=== PATIENT | female | born 1940 | race African-American/Black ===

== ENCOUNTER 2017-05-23 15:50 | Emergency (ER) | payer OTHER, MEDICARE ==
[2017-05-23 16:02] VITALS: BP 163/89; PULSE 72; TEMP 98.1; BMI 28.3
[2017-05-23] MEDS ORDERED: ACETAMINOPHEN 325 MG TABLET (FP) PO ONE (16:48)
[2017-05-23] MEDS ORDERED: ACETAMINOPHEN 325 MG TABLET (FP) ONE (16:52)
--- NOTE | 2017-05-23 16:57 | PDOC ---
History of Present Illness <Mylene Braun - Last Filed: 05/23/17 18:03> - History of Present Illness Initial Comments: 05/23/17 16:41 Patient is a 77 year old female who presents with left-sided back pain. The patient reports onset of left-sided back pain beginning yesterday evening that she describes as sharp with some radiation into her left flank. She states that she had a recent CT scan that showed "something with the gallbladder" and wonders if that could have something to do with her back pain. She was recently seen by her PCP Dr. Ievy who did lab work yesterday before the onset of her pain. She endorses some mild cough, but denies any fevers, chills , SOB, chest pain, abdominal pain, or changes with urination or bowel movements. She denies any pain on urination or blood in her urine as well. <Tha Satnos - Last Filed: 05/23/17 18:07> - General Chief Complaint: Pain, Acute Stated Complaint: LEFT UPPER BACK PAIN Time Seen by Provider: 05/23/17 15:55 Past History <Mylene Braun - Last Filed: 05/23/17 18:03> - Past Medical History Anemia: No Asthma: No Cancer: No Cardiac Disorders: No CVA: No COPD: No CHF: No Dementia: No Diabetes: No GI Disorders: No (gastritis) Disorders: No HTN: Yes Hypercholesterolemia: No Liver Disease: No Seizures: No Thyroid Disease: Yes (HASHIMOTOS THYROIDITIS) - Surgical History Abdominal Surgery: No Appendectomy: No Cardiac Surgery: No Cholecystectomy: No Lung Surgery: No Neurologic Surgery: No Orthopedic Surgery: No - Psycho/Social/Smoking Cessation Hx Anxiety: No Suicidal Ideation: No Smoking History: Never smoked Have you smoked in the past 12 months: No Hx Alcohol Use: No Drug/Substance Use Hx: No Substance Use Type: Alcohol Hx Substance Use Treatment: No <Tha Santos - Last Filed: 05/23/17 18:07> - Past Medical History Allergies/Adverse Reactions: Allergies Allergy/AdvReac Type Severity Reaction Status Date / Time codeine [Codeine] Allergy Nausea Verified 05/23/17 15:51 Opioids - Morphine Analogues Allergy Verified 05/23/17 15:52 Penicillins Allergy Swelling Verified 05/23/17 15:51 promethazine HCl Allergy Verified 05/23/17 15:52 [From Phenergan] latex Allergy Rash Uncoded 05/23/17 15:51 Home Medications: Ambulatory Orders Aspirin [ASA -] 81 mg PO DAILY 12/01/13 Guanfacine HCl [Tenex] 0.5 mg PO HS 12/01/13 Levothyroxine [Synthroid -] 25 mcg PO DAILY 12/01/13 Omeprazole 40 mg PO BID capsule 12/16/14 Biotin 1 mg PO DAILY 03/11/16 Atenolol [Tenormin -] 0 mg PO DAILY 05/23/17 Pravastatin Sodium [Pravachol] 40 mg PO DAILY 05/23/17 Telmisartan [Micardis] 80 mg PO DAILY 05/23/17 Review of Systems - Review of Systems Constitutional: No: Chills, Fever HEENTM: No: Recent change in vision Respiratory: Yes: Cough. No: Shortness of Breath, Productive cough, Hemoptysis Cardiac (ROS): No: Chest Pain, Palpitations, Chest Tightness ABD/GI: No: Constipated, Diarrhea, Nausea, Vomiting : No: Burning, Dysuria, Hematuria, Pain Musculoskeletal: Yes: Back Pain Integumentary: No: Rash Neurological: No: Headache, Numbness, Tingling, Weakness <Tha Santos - Last Filed: 05/23/17 18:07> *Physical Exam - Vital Signs Last Vital Signs Temp Pulse Resp BP Pulse Ox 98.1 F 72 18 163/89 98 05/23/17 15:51 05/23/17 15:51 05/23/17 15:51 05/23/17 15:51 05/23/17 15:51 <Mylene Braun - Last Filed: 05/23/17 18:03> - Vital Signs Last Vital Signs Temp Pulse Resp BP Pulse Ox 98.1 F 72 18 163/89 98 05/23/17 15:51 05/23/17 15:51 05/23/17 15:51 05/23/17 15:51 05/23/17 15:51 - Physical Exam Comments: 05/23/17 17:00 General Appearance: Nourished. No Apparent Distress HEENT: No Pharyngeal Erythema, Tonsillar Exudate, Tonsillar Erythema Respiratory/Chest: Lungs Clear, Normal Breath Sounds. No Crackles, Rales, Rhonchi, Wheezing Cardiovascular: Regular Rhythm, Regular Rate. No Murmur, Gallop/S3, Gallop/S4 Gastrointestinal/Abdominal: Normal Bowel Sounds, Soft. No Guarding, Rebound, Tenderness Musculoskeletal: No CVA Tenderness Extremity: Normal Capillary Refill, Some reproducible left-sided back pain with ranging of the left shoulder. Integumentary: Normal Color, Dry, Warm Neurologic: Fully Oriented, Alert, Normal Mood/Affect, Normal Response <Tha Santos - Last Filed: 05/23/17 18:07> Heart Score/ECG Review #1 General ECG Interpretation: Sinus Rhythm, Normal Rate (63), Normal Intervals, No acute ischemic changes Compared to previous ECG there are: No significant change <Tha Santos - Last Filed: 05/23/17 18:07> ED Treatment Course - ADDITIONAL ORDERS Additional order review: Laboratory Results 05/23/17 16:53 Urine Color Yellow Urine Appearance Clear Urine pH 8.5 H Ur Specific [place] 1.015 Urine Protein Negative Urine Glucose (UA) Negative Urine Ketones Negative Urine Blood Trace-intact H Urine Nitrite Negative Urine Bilirubin Negative Urine Urobilinogen 0.2 Ur Leukocyte Esterase Negative Urine RBC 2-5 Urine WBC 1-2 Ur Epithelial Cells Few Urine Bacteria Few - RADIOLOGY Radiology Studies Ordered: Category Date Time Status CHEST PA & LAT [RAD] Stat Radiology 05/23/17 16:48 Taken GALLBLADDER US [US] Stat Ultrasound 05/23/17 16:47 Taken - Medications Given in the ED: ED Medications Discontinued Medications Generic Name Dose Route Start Last Admin Trade Name Freq PRN Reason Stop Dose Admin Acetaminophen 650 mg 05/23/17 16:48 05/23/17 16:59 Tylenol - PO 05/23/17 16:49 650 mg ONCE ONE Administration <Mylene Braun - Last Filed: 05/23/17 18:03> Medical Decision Making - Medical Decision Making 05/23/17 17:01 Patient is a 77 year old female who presents with left-sided back pain. Differential includes but is not limited to: Musculoskeletal strain, pylonephritis, nephrolethiasis, pneumonia, or referred pain from gallbladder disease. Given her history we will obtain a chest radiograph to evaluate for pneumonia. We will also obtain an gallbladder US to evaluate for gallstones. We will obtain a UA as well to evaluate for UTI, pylonephritis, or nephrolethiasis. Given her physical exam and history, it is likely her pain is due to a musculoskeletal strain. 05/23/17 17:59 Patient's work up has been negative thus far. UA is unremarkable. Chest radiograph is preliminarily read has unremarkable pending official radiologist read. US does not demonstrate any gallstones or gallbladder pathology. We discussed the results with the patient and we believe that her symptoms are most likely due to musculoskeletal strain. We feel comfortable discharging the patient home and the patient is agreeable with the plan. <Tha Santos - Last Filed: 05/23/17 18:07> *DC/Admit/Observation/Transfer - Discharge Dispostion Admit: No <Mylene Braun - Last Filed: 05/23/17 18:03> - Attestations Physician Attestion: 05/23/17 17:58 I, Dr. Tha Santos, attest that this document has been prepared under my direction and personally reviewed by me in its entirety. I further attest, that it accurately reflects all work, treatment, procedures and medical decision -making performed by me. <Tha Santos - Last Filed: 05/23/17 18:07> Diagnosis at time of Disposition: Thoracic back sprain Qualifiers: Encounter type: initial encounter Qualified Code(s): S23.9XXA - Sprain of unspecified parts of thorax, initial encounter - Discharge Dispostion Disposition: HOME Condition at time of disposition: Improved - Patient Instructions Printed Discharge Instructions: Back Pain (Alternative Therapy), DI for Back Strain or Sprain Additional Instructions: you can take ibuprofen 400 mg every 8 hours as needed for pain. take with food. you can also take tylenol 500 mg every 6 hours as needed for pain. return for shortness of breath, fever, cough or any concerns. your urine was negative for infection. your gallbladder ultrasound was negative for gallstones. you should followup as needed for HIDA scan. return for any problems or concerns. call to schedule with your regular doctor.
[2017-05-23 17:01] LABS: PH,URINE 8.5 (4.5-8); URINE APPEARANCE Clear; URINE BILIRUBIN Negative (NEGATIVE); URINE GLUCOSE (UA) Negative (NEGATIVE); URINE KETONE Negative (NEGATIVE); URINE LEUK ESTERASE Negative (NEGATIVE); URINE NITRITE Negative (NEGATIVE); URINE PROTEIN Negative (NEGATIVE); URINE UROBILINOGEN 0.2 (0.2-1.0)
[2017-05-23 17:02] LABS: URINE BLOOD Trace-intact (NEGATIVE); URINE COLOR YELLOW
[2017-05-23 17:18] LABS: URINE BACTERIA FEW /hpf (NEGATIVE)
--- NOTE | 2017-05-23 17:56 | PDOC ---
Attending Attestation - Resident Resident Name: Tha Santos - ED Attending Attestation I have performed the following: I have examined & evaluated the patient, The case was reviewed & discussed with the resident, I agree w/resident's findings & plan, Exceptions are as noted - HPI HPI: 05/23/17 17:52 77 yo F her wtih c/o left upper flank/ back pain. statees started yesterday evening. constant. worse with certain movements. no cough no f/c no n/v no association wtih food. had outpt CT which had questionable gallstones. no f/c no n/v no change to stool. no urinary sxs. no cough. was in hospital trying to get outpt us as recommended for possible gallstones on ct, and couldn't so came to ed. pain constant. - Physicial Exam PE: 05/23/17 17:54 awake alert lungs clear bilaterally. heart RRR no mr/g. abd soft nt nd. LEFT POSTERIOR RIB TTP. NO MIDLINE SPINAL TENDERNSS. EXT WWP NO EDEMA. NO CALF TENDERNSS. - Medical Decision Making 05/23/17 17:55 77 YO f here wtih left flank posterior rib/ scapular pain. likley muskuloskeletal. differential uti pyelo, pna, referred pain from GB. plan us gb , cxr ua. pain control. reassessl. likely outpt followup.
--- NOTE | 2017-05-24 13:12 | EKG ---
Test Reason : Blood Pressure : / mmHG Vent. Rate : 063 BPM Atrial Rate : 063 BPM P-R Int : 180 ms QRS Dur : 080 ms QT Int : 426 ms P-R-T Axes : 045 -38 009 degrees QTc Int : 435 ms SINUS RHYTHM LEFT AXIS DEVIATION NONSPECIFIC T WAVE ABNORMALITY NO PREVIOUS ECGS AVAILABLE Confirmed by JARETH QUIÑONES MD ([id number]) on 05/24/2017 1:12:09 PM Referred By: DR BEY Confirmed By:JARETH QUIÑONES MD
== END 2017-05-23 18:13 | disposition home or self-care (01) ==
LOC: FER 15:50
DX: S23.9XXA Sprain of unspecified parts of thorax, initial encounter (principal); X58.XXXA Exposure to other specified factors, initial encounter; Y93.89 Activity, other specified; Y92.9 Unspecified place or not applicable; I10 Essential (primary) hypertension
CPT/HCPCS: 71020-TC; 76705-TC; 81003; 81015; 93005; 93010; 99282-25

== ENCOUNTER 2018-05-25 21:57 | Emergency (ER) | payer OTHER, MEDICARE ==
[2018-05-25 22:13] VITALS: BP 155/89; PULSE 84; TEMP 98.9; BMI 28.0
--- NOTE | 2018-05-25 22:25 | PDOC ---
History of Present Illness - General Chief Complaint: Pain Stated Complaint: RIGHT THIGH PAIN Time Seen by Provider: 05/25/18 22:24 Past History - Past Medical History Allergies/Adverse Reactions: Allergies Allergy/AdvReac Type Severity Reaction Status Date / Time codeine [Codeine] Allergy Nausea Verified 05/23/17 15:51 Opioids - Morphine Analogues Allergy Verified 05/23/17 15:52 Penicillins Allergy Swelling Verified 05/23/17 15:51 promethazine HCl Allergy Verified 05/23/17 15:52 [From Phenergan] latex Allergy Rash Uncoded 05/23/17 15:51 Home Medications: Ambulatory Orders Aspirin [ASA -] 81 mg PO DAILY 12/01/13 Guanfacine HCl [Tenex] 1 mg PO HS 12/01/13 Levothyroxine [Synthroid -] 25 mcg PO DAILY 12/01/13 Omeprazole 40 mg PO BID capsule 12/16/14 Biotin 1 mg PO DAILY 03/11/16 Atenolol [Tenormin -] 25 mg PO DAILY 05/23/17 Pravastatin Sodium [Pravachol] 40 mg PO DAILY 05/23/17 Amlodipine Besylate [Norvasc -] 2.5 mg PO DAILY 05/25/18 Furosemide [Lasix] 20 mg PO DAILY 05/25/18 Telmisartan [Micardis] 40 mg PO DAILY 05/25/18 Anemia: No Asthma: No Cancer: No Cardiac Disorders: No CVA: No COPD: No CHF: No Dementia: No Diabetes: No GI Disorders: No (gastritis) Disorders: No HTN: Yes Hypercholesterolemia: No Liver Disease: No Seizures: No Thyroid Disease: Yes (HASHIMOTOS THYROIDITIS) - Surgical History Abdominal Surgery: No Appendectomy: No Cardiac Surgery: No Cholecystectomy: No Lung Surgery: No Neurologic Surgery: No Orthopedic Surgery: No - Suicide/Smoking/Psychosocial Hx Smoking History: Never smoked Have you smoked in the past 12 months: No Hx Alcohol Use: Yes Drug/Substance Use Hx: No Substance Use Type: Alcohol Hx Substance Use Treatment: No Review of Systems - Review of Systems Constitutional: No: Symptoms Reported, See HPI, Chills, Diaphoresis, Fever, Loss of Appetite, Malaise, Night Sweats, Weakness, Weight Stable, Unintentional Wgt. Loss, Unexplained wgt Loss, Other HEENTM: No: Symptoms Reported, See HPI, Eye Pain, Blurred Vision, Tearing, Recent change in vision, Double Vision, Cataracts, Ear Pain, Ocular Prothesis, Ear Discharge, Nose Pain, Nose Congestion, Tinnitus, Nose Bleeding, Hearing Loss , Throat Pain, Throat Swelling, Mouth Pain, Dental Problems, Difficulty Swallowing, Mouth Swelling, Other Respiratory: No: Symptoms reported, See HPI, Cough, Orthopnea, Shortness of Breath, SOB with Exertion, SOB at Rest, Stridor, Wheezing, Productive cough, Hemoptysis, Other ABD/GI: No: Symptoms Reported, See HPI, Abdominal Distended, Abd. Pain w/ defecation, Blood Streaked Bowels, Constipated, Diarrhea, Difficulty Swallowing , Nausea, Poor Appetite, Poor Fluid Intake, Rectal Bleeding, Vomiting, Indigestion, Abdominal cramping, Tarry Stools, Other : No: Symptoms Reported, See HPI, Burning, Dysuria, Discharge, Frequency, Flank Pain, Hematuria, Incontinence, Pain, Urgency, Testicular Mass, Testicular Swelling, Lesions, Testicular Pain, Other Musculoskeletal: No: Symptoms Reported, See HPI, Back Pain, Gout, Joint Pain, Joint Swelling, Muscle Pain, Muscle Weakness, Neck Pain, Joint Stiffness, Other Integumentary: No: Symptoms Reported, See HPI, Bruising, Change in Color, Change in Hair/Nails, Dryness, Erythema, Flushing, Lesions, Lumps, Pallor, Pruritus, Rash, Sweating, Other Neurological: Yes: Paresthesia. No: Symptoms reported, See HPI, Headache, Numbness, Pre-Existing Deficit, Seizure, Tingling, Tremors, Weakness, Unsteady Gait, Ataxia, Dizziness, Other *Physical Exam - Vital Signs Last Vital Signs Temp Pulse Resp BP Pulse Ox 98.9 F 84 16 155/89 97 05/25/18 21:58 05/25/18 21:58 05/25/18 21:58 05/25/18 21:58 05/25/18 21:58 - Physical Exam General Appearance: Yes: Nourished, Appropriately Dressed. No: Apparent Distress HEENT: positive: EOMI, LARRY, Normal ENT Inspection, Normal Voice Neck: positive: Normal Thyroid Respiratory/Chest: positive: Lungs Clear, Normal Breath Sounds Cardiovascular: positive: Regular Rhythm, Regular Rate, S1, S2 Gastrointestinal/Abdominal: positive: Normal Bowel Sounds, Soft Musculoskeletal: positive: Normal Inspection Extremity: positive: Normal Capillary Refill, Normal Inspection, Normal Range of Motion Medical Decision Making - Medical Decision Making 05/27/18 06:27 Pt comes with right anterior thigh pain. She states that the area feels like it is burning. Pain is worse when she everts her leg; better when she inverts the leg. NSAIDS alone not helping the pain. 05/27/18 06:29 I injected the femoral nerve with 1% lidocaine and pt felt partial relief. Pt likely has meralgia paresthetica *DC/Admit/Observation/Transfer Diagnosis at time of Disposition: Meralgia paresthetica of right side - Discharge Dispostion Disposition: HOME Condition at time of disposition: Stable - Referrals Referrals: Amaury Ivey [Primary Care Provider] - Nixon Davis DO [Staff Physician] - - Patient Instructions Printed Discharge Instructions: Peripheral Neuropathy, Femoral Nerve Block - Post Discharge Activity
[2018-05-26] MEDS ORDERED: IBUPROFEN 600 MG TABLET (FP) PO ONE ×2 (00:10→00:16)
== END 2018-05-26 00:18 | disposition home or self-care (01) ==
LOC: FER 21:57
DX: G57.11 Meralgia paresthetica, right lower limb (principal); I10 Essential (primary) hypertension; E06.3 Autoimmune thyroiditis
CPT/HCPCS: 73552-TC-RT-FY; 99282-25

== ENCOUNTER 2019-11-02 13:17 | Emergency (ER) | payer OTHER, MEDICARE ==
[2019-11-02 13:38] VITALS: BP 121/65; PULSE 62; TEMP 98.1; BMI 28.0
--- NOTE | 2019-11-02 13:49 | PDOC ---
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 She reports that it was first noticed by a coworker, and she was alarmed after seeing the eye in the bathroom mirror. She denies any trauma to the eye, or any exposure to dust, chemicals, or other irritants. She denies any change in vision, or any discharge from the eye. No chest pain, shortness of breath, fevers, chills, weakness. Past History - Past Medical History Allergies/Adverse Reactions: Allergies Allergy/AdvReac Type Severity Reaction Status Date / Time codeine [Codeine] Allergy Nausea Verified 05/23/17 15:51 Opioids - Morphine Analogues Allergy Verified 05/23/17 15:52 Penicillins Allergy Swelling Verified 05/23/17 15:51 promethazine HCl Allergy Verified 05/23/17 15:52 [From Phenergan] latex Allergy Rash Uncoded 05/23/17 15:51 Home Medications: Ambulatory Orders Aspirin [ASA -] 81 mg PO DAILY 12/01/13 Guanfacine HCl [Tenex] 1 mg PO HS 12/01/13 Levothyroxine [Synthroid -] 25 mcg PO DAILY 12/01/13 Atenolol [Tenormin -] 25 mg PO DAILY 05/23/17 Amlodipine Besylate [Norvasc -] 5 mg PO BID 05/25/18 Furosemide [Lasix] 10 mg PO DAILY 05/25/18 Telmisartan [Micardis] 80 mg PO DAILY 05/25/18 Cholecalciferol (Vitamin D3) [Vitamin D3] 1 tab PO DAILY 11/02/19 Magnesium 1 tab PO DAILY 11/02/19 Multivitamin [Multiple Vitamins] 1 each PO DAILY 11/02/19 Ubidecarenone [Coq-10] 300 mg PO DAILY 11/02/19 Zinc 1 tab PO DAILY 11/02/19 Anemia: No Asthma: No Cancer: No Cardiac Disorders: No CVA: No COPD: No CHF: No Dementia: No Diabetes: No GI Disorders: No (gastritis) Disorders: No HTN: Yes Hypercholesterolemia: No Liver Disease: No Seizures: No Thyroid Disease: Yes (HASHIMOTOS THYROIDITIS) - Surgical History Abdominal Surgery: No Appendectomy: No Cardiac Surgery: No Cholecystectomy: No Lung Surgery: No Neurologic Surgery: No Orthopedic Surgery: No - Psycho Social/Smoking Cessation Hx Smoking History: Never smoked Have you smoked in the past 12 months: No Information on smoking cessation initiated: No Hx Alcohol Use: No Drug/Substance Use Hx: No Substance Use Type: Alcohol Hx Substance Use Treatment: No Review of Systems - Review of Systems Able to Perform ROS?: Yes Comments:: 11/02/19 17:19 ROS: GENERAL/CONSTITUTIONAL: No fever or chills. No weakness. HEAD, EYES, EARS, NOSE AND THROAT: Eye redness. No change in vision. No ear pain or discharge. No sore throat. CARDIOVASCULAR: No chest pain or shortness of breath RESPIRATORY: No cough, wheezing, or hemoptysis. GASTROINTESTINAL: No nausea, vomiting, diarrhea or constipation. GENITOURINARY: No dysuria, frequency, or change in urination. MUSCULOSKELETAL: No joint or muscle swelling or pain. No neck or back pain. SKIN: No rash NEUROLOGIC: No headache, vertigo, loss of consciousness, or change in strength/ sensation. ENDOCRINE: No increased thirst. No abnormal weight change HEMATOLOGIC/LYMPHATIC: No anemia, easy bleeding, or history of blood clots. ALLERGIC/IMMUNOLOGIC: No hives or skin allergy. *Physical Exam - Vital Signs Last Vital Signs Temp Pulse Resp BP Pulse Ox 98.1 F 62 18 121/65 98 11/02/19 13:17 11/02/19 13:17 11/02/19 13:17 11/02/19 13:17 11/02/19 13:17 - Physical Exam 11/02/19 17:19 PE: GENERAL: Awake, alert, and fully oriented, in no acute distress HEAD: No signs of trauma, normocephalic, atraumatic EYES: Subconjunctival hemorrhage noted in R eye. PERRLA, EOMI, sclera anicteric , L conjunctiva clear ENT: Auricles normal inspection, hearing grossly normal, nares patent, oropharynx clear without exudates. Moist mucosa NECK: Normal ROM, supple, no lymphadenopathy, JVD, or masses LUNGS: No distress, speaks full sentences, clear to auscultation bilaterally HEART: Regular rate and rhythm, normal S1 and S2, no murmurs, rubs or gallops, peripheral pulses normal and equal bilaterally. ABDOMEN: Soft, nontender, normoactive bowel sounds. No guarding, no rebound. No masses EXTREMITIES : Normal inspection, Normal range of motion, no edema. No clubbing or cyanosis NEUROLOGICAL: Cranial nerves II through XII grossly intact. Normal speech, normal gait, no focal sensorimotor deficits SKIN: Warm, Dry, normal turgor, no rashes or lesions noted Medical Decision Making - Medical Decision Making 11/02/19 17:20 79F w/hx HTN p/w acute onset subconjunctival hemorrhage in R eye, likely idiopathic in origin. No change in vision, headaches, weakness, or trauma to eye. Dispo: Discharge w/close PCP follow up. Discharge - Discharge Information Problems reviewed: Yes Clinical Impression/Diagnosis: Subconjunctival hemorrhage Qualifiers: Laterality: right Qualified Code(s): H11.31 - Conjunctival hemorrhage, right eye Condition: Stable Disposition: HOME - Admission No - Follow up/Referral Referrals: Gael Sorensen MD [Primary Care Provider] - - Patient Discharge Instructions Patient Printed Discharge Instructions: DI for Subconjunctival Hemorrhage Additional Instructions: You were seen in the ER for eye redness. We are diagnosing you with a subconjunctival hemorrhage - a small bleed of a blood vessel in your eye. This should resolve on its own in 10-14 days. Please return to the ER if you develop any changes in vision, worsening headaches, weakness, intractable nausea and vomiting. See your primary care provider as needed. - Post Discharge Activity
--- NOTE | 2019-11-02 15:10 | PDOC ---
Attending Attestation - Resident Resident Name: Tank Ramirez - ED Attending Attestation I have performed the following: I have examined & evaluated the patient, The case was reviewed & discussed with the resident, I agree w/resident's findings & plan, Exceptions are as noted - HPI HPI: 11/02/19 15:07 79 F with R eye redness. Pt states that she first noticed it today. Denies any injury or trauma to the eye. Denies any pain. Denies blurred vision. Denies pain with EOM. Is on baby aspirin, no other blood thinners. - Physicial Exam PE: 11/02/19 15:09 GENERAL: Awake, alert, and fully oriented, in no acute distress. HEAD: No signs of trauma EYES: + R subconjunctival hemorrhage, PERRLA, EOMI, sclera anicteric ENT: Auricles normal inspection, hearing grossly normal, nares patent, oropharynx clear without exudates. Moist mucosa NECK: Nontender, no stepoffs, Normal ROM, supple, no lymphadenopathy, JVD, or masses LUNGS: Breath sounds equal, clear to auscultation bilaterally. No wheezes, and no crackles HEART: Regular rate and rhythm, normal S1 and S2, no murmurs, rubs or gallops ABDOMEN: Soft, nontender, normoactive bowel sounds. No guarding, no rebound. No masses EXTREMITIES: Normal range of motion, no edema. No clubbing or cyanosis. No cords, erythema, or tenderness NEUROLOGICAL: Cranial nerves II through XII intact. 5/5 strength and sensation in all extremities, Normal speech, normal gait, normal cerebellar function SKIN: Warm, Dry, normal turgor, no rashes or lesions noted. - Medical Decision Making 11/02/19 15:09 79 F with subconjunctival hemorrhage in R eye, otherwise normal exam. - F/u ophtho Pt is well appearing, with normal vitals. Clinically stable for DC at this time. I discussed the physical exam findings, ancillary test results and final diagnoses with the patient. I answered all of the patient's questions. The patient was satisfied with the care received and felt comfortable with the discharge plan and treatment plan. The patient agrees to follow up with the primary care physician within 24-72 hours.
== END 2019-11-02 15:10 | disposition home or self-care (01) ==
LOC: FER 13:17
DX: H11.31 Conjunctival hemorrhage, right eye (principal); I10 Essential (primary) hypertension; E06.3 Autoimmune thyroiditis; K52.9 Noninfective gastroenteritis and colitis, unspecified
CPT/HCPCS: 99282-25

== ENCOUNTER 2020-09-18 14:25 | Emergency (ER) | payer OTHER, MEDICARE | END 2020-09-18 16:13 | disposition home or self-care (01) | LOC: JVIRT 14:25 | DX: Z03.818 Encounter for observation for suspected exposure to other biological agents ruled out (principal) | CPT/HCPCS: C9803; Q3014-GT; U0003 ==

== ENCOUNTER 2021-12-29 10:14 | Emergency (ER) | payer OTHER, MEDICARE ==
[2021-12-29 10:41] VITALS: TEMP 99; BMI 28.0
[2021-12-29 11:28] LABS: ALBUMIN 3.7 g/dl (3.4-5.0); BILIRUBIN,TOTAL 0.7 mg/dl (0.2-1); CALCIUM 9.5 mg/dl (8.5-10); CREATININE 0.9 mg/dl (0.55-1.3); MAGNESIUM 1.9 mg/dL (1.8-2.4); PHOSPHOROUS 3.9 mg/dl (2.5-4.9); TOT PROT 6.7 g/dl (6.4-8.2)
[2021-12-29 12:16] LABS: BASO % 1.2 % (0-2.0); EOS % 3.9 % (0-4.5); HEMATOCRIT 38.4 % (32.4-45.2); LYMPH % 41.7 % (8-40); MEAN CELL VOLUME 91.3 fl (80-96); MEAN PLT VOLUME 7.9 fl (7.5-11.1); MONO % 9.7 % (3.8-10.2); NEUT % 43.5 % (42.8-82.8); PLATELET COUNT 281 10^3/uL (134-434); RDW 13.4 % (11.6-15.6)
[2021-12-29 13:26] VITALS: BP 110/83; PULSE 66
== END 2021-12-29 13:33 | disposition home or self-care (01) ==
LOC: FER 10:14
DX: R07.89 Other chest pain (principal)
CPT/HCPCS: 36415; 71046-TC-FY; 71275-TC; 80053; 83735; 84100; 84484; 85025; 85379; 93005; 99285-25; Q9967

== ENCOUNTER 2021-12-31 06:23 | Emergency (ER) | payer OTHER, MEDICARE ==
[2021-12-31 06:37] VITALS: BMI 28.0
[2021-12-31 09:27] VITALS: BP 133/78; PULSE 61; TEMP 97.9
== END 2021-12-31 10:10 | disposition home or self-care (01) ==
LOC: FER 06:23
DX: R51.9 Headache, unspecified (principal); W19.XXXA Unspecified fall, initial encounter
CPT/HCPCS: 70450-TC; 72125-TC; 73060-TC-LT-FY; 73060-TC-RT-FY; 73130-TC-LT-FY; 73130-TC-RT-FY; 99285-25

== ENCOUNTER → 2023-08-31 | Day surgery (SDC) | payer OTHER, MEDICARE | END | disposition home or self-care (01) | LOC: JRADIR 09:13 | PROVIDERS: ATTEND Internal Medicine Geriatric Medicine | PROC: 0GBG3ZX Excision of Left Thyroid Gland Lobe, Percutaneous Approach, Diagnostic (ICD-10-PCS; principal; 2023-08-31) | DX: E04.1 Nontoxic single thyroid nodule (principal) | CPT/HCPCS: 10005; 76942; 88173; 88305-TC ==